=== PATIENT | female | born 1965 | race Caucasian/White ===

== ENCOUNTER 2019-05-08 22:33 | Inpatient (IN) ==
[2019-05-09] MEDS ORDERED: Naloxone 0.4 MG/ML INJ IVP PRN (03:02)
[2019-05-09 04:28] LABS: ABG Base Excess 5 mEq/L (-2 to 3); ABG HCO3 29 mEq/L (21-27); ABG Oxygen Saturation 99 % (95-98); ABG PCO2 43 mmHg (35-45); ABG PH 7.45 pH Units (7.32-7.45); ABG PO2 124 mmHg (85-104); ABG TCO2 31 mEq/L (20-26); Blood Gas Modality AF; Blood Gas VT 400 cc
[2019-05-09 04:51] LABS: Basophils # 0.1 K/mcL (0.0-0.2); Basophils % 0.6 %; Hemoglobin 11.3 g/dL (11.5-15.4); Immature Granulocytes % 0.3 % (0-4); Lymphocytes # 0.1 K/mcL (0.6-4.6); Lymphocytes % 1.4 %; Mean Corpuscular HGB Conc 30.5 g/dL (31.6-35.5); Mean Corpuscular Hemoglobin 28.8 pg (28.0-33.3); Mean Corpuscular Volume 94.1 fL (83.0-100.0); Mean Platelet Volume 10.4 fL (9.4-12.4); Monocytes # 0.2 K/mcL (0.0-1.3); Monocytes % 2.7 %; Neutrophils # 7.3 K/mcL (1.6-8.9); Platelet Count 153 K/mcL (140-400); Red Blood Count 3.93 M/mcL (3.82-4.97); Red Cell Distribution Width 17.4 % (11.5-14.5); White Blood Count 7.7 K/mcL (4.3-11.1)
[2019-05-09 05:12] LABS: BUN/Creatinine Ratio 87 (6-26); Blood Urea Nitrogen 58 mg/dL (6-20); Calcium 9.4 mg/dL (8.6-10.3); Carbon Dioxide 29 mEq/L (23-29); Chloride 104 mEq/L (98-107); Glucose 230 mg/dL (70-105); Osmolality,Calculated 321 (280-300); Potassium 3.9 mEq/L (3.5-5.1); Sodium 144 mEq/L (136-145); eGFR For African Americans > 60 (> 60); eGFR For Non-African Americans > 60 (> 60)
[2019-05-09 05:18] LABS: Anisocytosis 1+ (Not Present); Platelet Estimate Normal (Normal)
[2019-05-09] MEDS: 0.9 % Sodium Chloride 1,000 ML IVC SCH ×4 (05:47→23:54)
[2019-05-09] MEDS: levoFLOXacin 750 MG/150 ML 750 MG/150 ML BAG IVPB SCH (05:47)
[2019-05-09] MEDS: Ipratropium/Albuterol Neb 3 ML IH SCH ×4 (05:57→21:44)
[2019-05-09] MEDS ORDERED: Vancomycin 1 EACH in 0.9 % Sodium Chloride 250 ML IVPB PRN ×3 (08:53→18:00)
[2019-05-09] MEDS: Chlorhexidine Rinse 15 ML MOUTHWASH MM SCH ×2 (09:11→19:50)
[2019-05-09] MEDS: predniSONE 20 MG TABLET GTUBE SCH (09:11)
[2019-05-09] MEDS: Piperacillin/Tazobactam 3.375 GM in 0.9 % Sodium Chloride Mini Bag 100 ML IVPB SCH ×3 (09:12→23:52)
[2019-05-09 09:38] LABS: INR 1.8; Prothrombin Time 20.9 Seconds (9.4-12.1)
[2019-05-09] MEDS ORDERED: *HR* Dextrose 50 % in Water (Syg) 50 ML SYRINGE IVP PRN (10:29)
[2019-05-09] MEDS ORDERED: Dextrose Gel 15 GM/37.5 ML TUBE PO PRN ×2 (10:29)
[2019-05-09] MEDS ORDERED: D5% in Water 1,000 ML IVC PRN (10:29)
[2019-05-09] MEDS ORDERED: *HR* OxyCODONE Oral Soln 5 MG/5 ML UD.LIQ PO PRN ×2 (11:25)
[2019-05-09] MEDS: Pantoprazole 40 MG VIAL IVP SCH (11:40)
[2019-05-09] MEDS: Insulin LISPRO 300 UNITS/3 ML VIAL SQ SCH ×3 (12:05→23:53)
[2019-05-09] MEDS ORDERED: *HR* Midazolam HCl 5 MG/5 ML VIAL IVP ONE ×2 (13:39→14:56)
[2019-05-09] MEDS ORDERED: *HR* FentaNYL (PF) 100 MCG/2 ML VIAL ONE (13:39)
[2019-05-09] MEDS ORDERED: *HR* FentaNYL (PF) 100 MCG/2 ML VIAL IVP ONE (14:56)
[2019-05-09 16:00] LABS: Source of Body Fluid Right Lower Lobe BAL
[2019-05-09] MEDS: Morphine Sulfate 2 MG/ML SYRINGE IVP PRN (17:23)
[2019-05-09] MEDS: *HR* Heparin 5,000 UNIT/ML VIAL SQ SCH (18:20)
[2019-05-09 22:24] LABS: Appearance of Body Fluid Cloudy (Clear); Volume of Body Fluid 35 mL
[2019-05-10 02:40] LABS: Basophils % 0.1 %; Hematocrit 28.8 % (35.3-44.9); Immature Granulocytes % 0.8 % (0-4); Lymphocytes # 0.2 K/mcL (0.6-4.6); Mean Corpuscular HGB Conc 30.6 g/dL (31.6-35.5); Mean Corpuscular Hemoglobin 28.8 pg (28.0-33.3); Mean Corpuscular Volume 94.1 fL (83.0-100.0); Mean Platelet Volume 10.9 fL (9.4-12.4); Monocytes # 0.2 K/mcL (0.0-1.3); Monocytes % 2.8 %; Neutrophils # 7.2 K/mcL (1.6-8.9); Platelet Count 103 K/mcL (140-400); Red Blood Count 3.06 M/mcL (3.82-4.97); Red Cell Distribution Width 17.1 % (11.5-14.5); Segmented Neutrophils % 94.3 %; White Blood Count 7.6 K/mcL (4.3-11.1)
[2019-05-10 03:18] LABS: BUN/Creatinine Ratio 109 (6-26); Blood Urea Nitrogen 25 mg/dL (6-20); Calcium 8.9 mg/dL (8.6-10.3); Carbon Dioxide 27 mEq/L (23-29); Chloride 116 mEq/L (98-107); Glucose 121 mg/dL (70-105); Osmolality,Calculated 318 (280-300); Potassium 2.3 mEq/L (3.5-5.1); Sodium 151 mEq/L (136-145); eGFR For African Americans > 60 (> 60); eGFR For Non-African Americans > 60 (> 60)
[2019-05-10] MEDS: Ipratropium/Albuterol Neb 3 ML IH SCH ×4 (03:18→22:17)
[2019-05-10] MEDS ORDERED: Potassium Chloride Elixir 20 MEQ/15 ML UDC GTUBE ONE ×2 (04:04→11:22)
[2019-05-10 04:11] LABS: Hemoglobin 8.8 g/dL (11.5-15.4)
[2019-05-10 04:32] LABS: Anisocytosis 1+ (Not Present); Platelet Estimate Decreased (Normal)
[2019-05-10] MEDS: *HR* Heparin 5,000 UNIT/ML VIAL SQ SCH (05:09)
[2019-05-10] MEDS: levoFLOXacin 750 MG/150 ML 750 MG/150 ML BAG IVPB SCH (05:10)
[2019-05-10] MEDS: Insulin LISPRO 300 UNITS/3 ML VIAL SQ SCH ×4 (05:11→23:29)
[2019-05-10] MEDS: 0.9 % Sodium Chloride 1,000 ML IVC SCH (07:50)
[2019-05-10] MEDS: Piperacillin/Tazobactam 3.375 GM in 0.9 % Sodium Chloride Mini Bag 100 ML IVPB SCH ×3 (07:50→23:04)
[2019-05-10] MEDS: Pantoprazole 40 MG VIAL IVP SCH (07:51)
[2019-05-10] MEDS: Chlorhexidine Rinse 15 ML MOUTHWASH MM SCH ×2 (07:51→20:13)
[2019-05-10] MEDS: Morphine Sulfate 2 MG/ML SYRINGE IVP PRN (08:05)
[2019-05-10] MEDS: predniSONE 20 MG TABLET GTUBE SCH (09:41)
[2019-05-10] MEDS ORDERED: *HR* LORazepam 2 MG/ML VIAL IVP STA (10:32)
[2019-05-10] MEDS ORDERED: *HR* LORazepam 2 MG/ML VIAL ONE (10:35)
[2019-05-10 10:52] LABS: Potassium 2.8 mEq/L (3.5-5.1)
[2019-05-10 11:08] LABS: Magnesium 1.8 mg/dL (1.6-2.6)
[2019-05-10 11:21] LABS: Hematocrit 26.8 % (35.3-44.9); Hemoglobin 8.3 g/dL (11.5-15.4)
[2019-05-10] MEDS: Potassium Chloride Elixir 20 MEQ/15 ML UDC GTUBE SCH ×2 (12:01→14:06)
[2019-05-10] MEDS: clonazePAM 1 MG TABLET PO SCH ×2 (12:01→20:13)
[2019-05-10 15:44] LABS: Hemoglobin 7.8 g/dL (11.5-15.4)
[2019-05-10 21:16] LABS: Hematocrit 27.5 % (35.3-44.9); Hemoglobin 8.2 g/dL (11.5-15.4)
[2019-05-10] MEDS ORDERED: *HR* Metoprolol 5 MG/5 ML VIAL IVP ONE ×2 (22:46→22:52)
[2019-05-10] MEDS ORDERED: 0.9 % Sodium Chloride 1,000 ML IVC ONE (23:32)
[2019-05-11] MEDS: *HR* LORazepam 2 MG/ML VIAL IVP PRN ×2 (00:46→18:09)
[2019-05-11] MEDS: Ipratropium/Albuterol Neb 3 ML IH SCH ×4 (03:52→21:33)
[2019-05-11] MEDS: levoFLOXacin 750 MG/150 ML 750 MG/150 ML BAG IVPB SCH (06:14)
[2019-05-11] MEDS: Insulin LISPRO 300 UNITS/3 ML VIAL SQ SCH ×4 (06:15→23:50)
[2019-05-11 06:58] LABS: Hematocrit 25.9 % (35.3-44.9); Hemoglobin 7.8 g/dL (11.5-15.4); Mean Corpuscular HGB Conc 30.1 g/dL (31.6-35.5); Mean Corpuscular Hemoglobin 28.7 pg (28.0-33.3); Mean Corpuscular Volume 95.2 fL (83.0-100.0); Mean Platelet Volume 11.5 fL (9.4-12.4); Platelet Count 104 K/mcL (140-400); Red Blood Count 2.72 M/mcL (3.82-4.97); Red Cell Distribution Width 17.4 % (11.5-14.5); White Blood Count 8.7 K/mcL (4.3-11.1)
[2019-05-11 07:18] LABS: BUN/Creatinine Ratio 96 (6-26); Blood Urea Nitrogen 26 mg/dL (6-20); Calcium 8.6 mg/dL (8.6-10.3); Carbon Dioxide 26 mEq/L (23-29); Chloride 120 mEq/L (98-107); Glucose 134 mg/dL (70-105); Osmolality,Calculated 327 (280-300); Potassium 3.5 mEq/L (3.5-5.1); Sodium 155 mEq/L (136-145); eGFR For African Americans > 60 (> 60); eGFR For Non-African Americans > 60 (> 60)
[2019-05-11] MEDS: Morphine Sulfate 2 MG/ML SYRINGE IVP PRN ×2 (08:36→13:59)
[2019-05-11] MEDS: clonazePAM 1 MG TABLET PO SCH ×2 (08:36→20:15)
[2019-05-11] MEDS: Pantoprazole 40 MG VIAL IVP SCH ×2 (08:36→20:15)
[2019-05-11] MEDS: Piperacillin/Tazobactam 3.375 GM in 0.9 % Sodium Chloride Mini Bag 100 ML IVPB SCH ×3 (08:37→23:49)
[2019-05-11] MEDS: Chlorhexidine Rinse 15 ML MOUTHWASH MM SCH ×2 (08:38→20:15)
[2019-05-11] MEDS: predniSONE 20 MG TABLET GTUBE SCH (08:45)
[2019-05-11] MEDS ORDERED: Potassium Chloride Elixir 20 MEQ/15 ML UDC GTUBE ONE (09:05)
[2019-05-11 16:54] LABS: Hematocrit 25.4 % (35.3-44.9); Hemoglobin 7.7 g/dL (11.5-15.4)
[2019-05-12] MEDS: *HR* LORazepam 2 MG/ML VIAL IVP PRN (03:33)
[2019-05-12] MEDS: Ipratropium/Albuterol Neb 3 ML IH SCH ×4 (04:35→22:06)
[2019-05-12 04:47] LABS: Hematocrit 26.1 % (35.3-44.9); Hemoglobin 7.9 g/dL (11.5-15.4); Mean Corpuscular HGB Conc 30.3 g/dL (31.6-35.5); Mean Corpuscular Hemoglobin 28.5 pg (28.0-33.3); Mean Corpuscular Volume 94.2 fL (83.0-100.0); Mean Platelet Volume 11.6 fL (9.4-12.4); Platelet Count 111 K/mcL (140-400); Red Blood Count 2.77 M/mcL (3.82-4.97); Red Cell Distribution Width 17.8 % (11.5-14.5); White Blood Count 7.9 K/mcL (4.3-11.1)
[2019-05-12 05:00] LABS: BUN/Creatinine Ratio 79 (6-26); Blood Urea Nitrogen 23 mg/dL (6-20); Calcium 8.4 mg/dL (8.6-10.3); Carbon Dioxide 27 mEq/L (23-29); Chloride 119 mEq/L (98-107); Glucose 166 mg/dL (70-105); Osmolality,Calculated 323 (280-300); Potassium 3.5 mEq/L (3.5-5.1); Sodium 153 mEq/L (136-145); eGFR For African Americans > 60 (> 60); eGFR For Non-African Americans > 60 (> 60)
[2019-05-12] MEDS: Insulin LISPRO 300 UNITS/3 ML VIAL SQ SCH ×4 (05:17→23:36)
[2019-05-12] MEDS: Piperacillin/Tazobactam 3.375 GM in 0.9 % Sodium Chloride Mini Bag 100 ML IVPB SCH ×3 (07:46→23:35)
[2019-05-12] MEDS: Pantoprazole 40 MG VIAL IVP SCH ×2 (07:47→20:02)
[2019-05-12] MEDS: Chlorhexidine Rinse 15 ML MOUTHWASH MM SCH ×2 (07:47→20:01)
[2019-05-12] MEDS: predniSONE 20 MG TABLET GTUBE SCH (07:47)
[2019-05-12] MEDS: clonazePAM 1 MG TABLET PO SCH ×2 (07:47→20:02)
[2019-05-12] MEDS: Morphine Sulfate 2 MG/ML SYRINGE IVP PRN ×2 (14:41→23:46)
[2019-05-13] MEDS: Ipratropium/Albuterol Neb 3 ML IH SCH ×4 (03:28→21:17)
[2019-05-13] MEDS: Insulin LISPRO 300 UNITS/3 ML VIAL SQ SCH ×3 (05:35→17:59)
[2019-05-13] MEDS: Piperacillin/Tazobactam 3.375 GM in 0.9 % Sodium Chloride Mini Bag 100 ML IVPB SCH ×2 (08:18→16:22)
[2019-05-13] MEDS: Chlorhexidine Rinse 15 ML MOUTHWASH MM SCH ×2 (08:18→19:37)
[2019-05-13] MEDS: predniSONE 20 MG TABLET GTUBE SCH (08:18)
[2019-05-13] MEDS: clonazePAM 1 MG TABLET PO SCH ×2 (08:18→19:38)
[2019-05-13] MEDS: Pantoprazole 40 MG VIAL IVP SCH ×2 (08:18→19:38)
[2019-05-13] MEDS: Morphine Sulfate 2 MG/ML SYRINGE IVP PRN (14:46)
[2019-05-13] MEDS: *HR* LORazepam 2 MG/ML VIAL IVP PRN (18:01)
[2019-05-14] MEDS: Piperacillin/Tazobactam 3.375 GM in 0.9 % Sodium Chloride Mini Bag 100 ML IVPB SCH ×3 (00:24→16:36)
[2019-05-14] MEDS: Insulin LISPRO 300 UNITS/3 ML VIAL SQ SCH ×4 (00:24→18:40)
[2019-05-14] MEDS: Ipratropium/Albuterol Neb 3 ML IH SCH ×4 (03:56→23:00)
[2019-05-14] MEDS ORDERED: Aminoglycoside Consult 1 EACH MC ONE (08:24)
[2019-05-14 08:34] LABS: BUN/Creatinine Ratio 74 (6-26); Blood Urea Nitrogen 20 mg/dL (6-20); Calcium 8.3 mg/dL (8.6-10.3); Carbon Dioxide 31 mEq/L (23-29); Chloride 113 mEq/L (98-107); Glucose 146 mg/dL (70-105); Osmolality,Calculated 319 (280-300); Potassium 2.9 mEq/L (3.5-5.1); Sodium 152 mEq/L (136-145); eGFR For African Americans > 60 (> 60); eGFR For Non-African Americans > 60 (> 60)
[2019-05-14] MEDS ORDERED: Calcium Gluconate 1gm/50mL 1 GM/50 ML BAG IVPB PRN (09:04)
[2019-05-14] MEDS ORDERED: Potassium Phosphate 44 MEQ in 0.9 % Sodium Chloride 250 ML IVPB PRN (09:04)
[2019-05-14] MEDS: Pantoprazole 40 MG VIAL IVP SCH ×2 (09:52→20:28)
[2019-05-14] MEDS: clonazePAM 1 MG TABLET PO SCH ×2 (09:52→20:28)
[2019-05-14] MEDS: predniSONE 20 MG TABLET GTUBE SCH (09:52)
[2019-05-14] MEDS: Chlorhexidine Rinse 15 ML MOUTHWASH MM SCH ×2 (09:52→20:28)
[2019-05-14] MEDS: FentaNYL (PF) 1,000 MCG in 0.9 % Sodium Chloride 80 ML IVC SCH (11:31)
[2019-05-14] MEDS ORDERED: FentaNYL (PF) 1,000 MCG in 0.9 % Sodium Chloride 80 ML IV ONE (13:56)
[2019-05-15] MEDS: Piperacillin/Tazobactam 3.375 GM in 0.9 % Sodium Chloride Mini Bag 100 ML IVPB SCH ×2 (00:27→08:34)
[2019-05-15] MEDS: Insulin LISPRO 300 UNITS/3 ML VIAL SQ SCH ×3 (00:28→16:47)
[2019-05-15] MEDS: Ipratropium/Albuterol Neb 3 ML IH SCH ×3 (03:35→15:40)
[2019-05-15] MEDS: FentaNYL (PF) 1,000 MCG in 0.9 % Sodium Chloride 80 ML IVC SCH ×2 (05:40→18:30)
[2019-05-15] MEDS: Chlorhexidine Rinse 15 ML MOUTHWASH MM SCH ×2 (08:35→20:24)
[2019-05-15] MEDS: clonazePAM 1 MG TABLET PO SCH (08:35)
[2019-05-15] MEDS: Pantoprazole 40 MG VIAL IVP SCH (08:35)
[2019-05-15] MEDS ORDERED: *HR* LORazepam 2 MG/ML VIAL IVP PRN ×3 (12:22→16:49)
[2019-05-15] MEDS ORDERED: *HR* FentaNYL (PF) 100 MCG/2 ML VIAL IVP PRN (12:22)
[2019-05-15] MEDS: *HR* LORazepam 2 MG/ML VIAL IVP PRN (12:28)
[2019-05-15] MEDS ORDERED: FentaNYL (PF) 1,000 MCG in 0.9 % Sodium Chloride 80 ML IV ONE (13:56)
[2019-05-15] MEDS: predniSONE 20 MG TABLET GTUBE SCH (16:48)
[2019-05-15] MEDS: *HR* FentaNYL (PF) 100 MCG/2 ML VIAL IVP PRN ×2 (17:19→18:33)
[2019-05-15] MEDS: Morphine Sulfate 2 MG/ML SYRINGE IVP PRN (20:27)
[2019-05-16] MEDS: FentaNYL (PF) 1,000 MCG in 0.9 % Sodium Chloride 80 ML IVC SCH ×2 (02:14→10:44)
[2019-05-16] MEDS: Morphine Sulfate 2 MG/ML SYRINGE IVP PRN (07:42)
[2019-05-16 07:46] VITALS: BP 136/88
[2019-05-16] MEDS: Chlorhexidine Rinse 15 ML MOUTHWASH MM SCH (07:48)
[2019-05-16] MEDS ORDERED: *HR* FentaNYL PATCH 50 MCG PATCH TD SCH (10:15)
[2019-05-16] MEDS ORDERED: *HR* FentaNYL PATCH 75 MCG PATCH TD SCH (10:15)
== END 2019-05-16 13:57 | disposition hospice, inpatient (51) | DRG 207 ==
LOC: SUATTDRO 05-09 02:54 → ICNU 05-09 02:54 → 2ANU 05-15 16:45
PROVIDERS: ADMIT Family Medicine; ATTEND Internal Medicine

== ENCOUNTER 2019-05-16 10:43 | Inpatient (IN) ==
[2019-05-16] MEDS: FentaNYL (PF) 1,000 MCG in 0.9 % Sodium Chloride 80 ML IVC SCH ×2 (10:47→19:02)
[2019-05-16] MEDS ORDERED: Bisacodyl 10 MG RECTAL SUPPOSITORY RC PRN (10:54)
[2019-05-16] MEDS ORDERED: Atropine Sulfate 1% 40 DROP/2 ML BOTTLE SL PRN (10:54)
[2019-05-16] MEDS ORDERED: Ipratropium/Albuterol Neb 3 ML IH PRN (10:54)
[2019-05-16] MEDS ORDERED: Haloperidol Oral Conc 10 MG/5 ML UDC PO PRN (10:54)
[2019-05-16] MEDS ORDERED: *HR* FentaNYL PATCH 12 MCG PATCH TD SCH (11:00)
--- NOTE | 2019-05-16 13:16 | Pallative History & Physical ---
Date of Encounter: 05/16/19 Time of Encounter: 09:00 Assessment and Plan (1) Dyspnea Status: Acute Patient with end-stage ALS. Has tracheostomy to trach mask O2. - Fan at bedside - HOB up - Suction PRN - Atropine gtts prn Qualifiers: Dyspnea type: unspecified Qualified Code(s): R06.00 - Dyspnea, unspecified (2) Generalized pain Status: Chronic Patient with end-stage ALS. Patient nonverbal. Currently on Fentanyl gtt. Will transition gtt to patch and add SL Oxycodone. Plan is to DC gtt after 2200 tonight as patch will need time to start working. (3) Goals of care, counseling/discussion Status: Acute Discussed transition of patient to [facility] inpatient hospice care today. agree to plan. Terminal diagnosis of ALS. (4) Palliative care encounter Status: Acute (5) ALS (amyotrophic lateral sclerosis) Status: Chronic Internal Medicine - H&P: HPI Chief complaint: ALS Admitted From: Intrahospital Transfer Plans for Post Hospital Care: at Medical Facility History of present illness: Ms. Loera is a 53 year old female with end-stage ALS. Patient transitioned to inpatient hospice care for comfort care. Ricardo at bedside. Explained POC and goals for comfort. Medications adjusted. Past Med Surg Social Fam HX - Past Medical History Medical history: asthma, other Additional medical history: ALS, PNEUMONIA, CURRENTLY A HOSPICE PT AND A FULL CODE OF 05/08/2019 Psychiatric history: anxiety, depression - Past Surgical History Surgical History: non-contributory Additional surgical history: TRACH, peg tube - Social History Smoking Status: Former smoker Smokeless Tobacco Status: No Alcohol use: rarely Drug use: none Internal Medicine - H&P: Meds FentaNYL PATCH [Duragesic] 50 mcg TD Q72H [id number] 05/16/19 [Rx] LORazepam [Ativan] 1 mg IVP Q1H PRN vial 05/16/19 [Rx] Allergy/AdvReac Type Severity Reaction Status Date / Time No Known Allergies Allergy Verified 05/08/19 20:17 ROS unobtainable: due to mental status (Patient with ALS, tracheostomy tube in place. Nonverbal. ) - Constitutional Constitutional ROS PAL: fatigue - Respiratory Respiratory: dyspnea - Musculoskeletal Musculoskeletal ROS IM: muscle weakness - Psychiatric Psychiatric general PM: anxiety Palliative Care-Exam - Constitutional General appearance: Present: cooperative, no acute distress - Head Head Exam: Present: atraumatic - Eye Eye exam: Present: PERRL - ENT ENT exam: Present: mucous membranes dry - Expanded ENT Exam Throat exam: Present: normal inspection - Neck Additional comments: Tracheostomy to anterior neck - Respiratory Respiratory exam: Present: decreased breath sounds - Expanded Respiratory Exam Location: decreased breath sounds: Left, Right, Lower - Cardiovascular Cardiovascular exam: Present: +S1, +S2 - Expanded Cardiovascular Exam Peripheral pulses: 1+: Femoral (L) PM, Femoral (R) PM, Posterior Tibialis (L), Posterior Tibialis (R), 2+: Carotid (L) PM, Carotid (R) PM, Radial (L), Radial (R), Dorsalis Pedis (L) PM, Dorsalis Pedis (R) PM - GI/Abdominal Exam GI/Abdominal exam: Present: soft (PEG in place) - Rectal Rectal exam: Present: deferred - Catheter Type: Urethral (Freed) Additional comments: clear yellow urine - Extremities Exam Extremities exam: Present: tenderness Additional comments: Patient with upper and lower extremity contracture's r/t ALS - Neurological Exam Neurological exam: Present: alert Additional comments: Nonverbal - Expanded Neurological Exam Coma Scale Eye Opening: Spontaneous Coma Scale Motor Response: Withdraws to Pain Coma Scale Verbal Response: Oriented Coma Scale Total: 13 - Psychiatric Psychiatric exam: Present: flat affect - Skin Skin exam: Present: intact, warm Palliative Quality Palliative Quality: Screen for Code Status: No, Screen for Goals of Care: No, Screen for Pain: Yes, If Pain Regimen Started, Initiate Bowel Regimen: Yes, Screen for Nausea/Vomitting: Yes Code Status: 05/16/19 10:54 Resuscitation Status: Active [RES] Routine Comment: Resuscitation Status: DNR-Comfort Care
[2019-05-16] MEDS ORDERED: FentaNYL PATCH 100 MCG, FentaNYL PATCH 25 MCG TD SCH (14:30)
[2019-05-17] MEDS: *HR* LORazepam Oral Conc 2 MG/ML PO PRN ×2 (06:00→07:16)
--- NOTE | 2019-05-17 10:04 | Palliative Progress Note ---
Date of Encounter: 05/17/19 Time of Encounter: 09:30 - Assessment and plan (1) Dyspnea Current Visit: No Status: Acute Assessment and plan: Patient with end-stage ALS. Has tracheostomy to trach mask O2. - Fan at bedside - HOB up - Suction PRN - Atropine gtts prn - Current FiO2 at 40%. Will titrate off if possible and to maintain sats >90% Qualifiers: Dyspnea type: unspecified Qualified Code(s): R06.00 - Dyspnea, unspecified (2) Generalized pain Current Visit: No Status: Chronic Assessment and plan: Patient with end-stage ALS. Patient nonverbal. Transitioned to patch yesterday and add SL Oxycodone. Tolerating well. (3) Goals of care, counseling/discussion Current Visit: Yes Status: Acute Assessment and plan: Terminal diagnosis of ALS. Patient inpatient hospice. Will work to DC O2 or get to lower flow to maintain comfortable sats. Family to visit today for holiday. (4) Palliative care encounter Current Visit: Yes Status: Acute (5) ALS (amyotrophic lateral sclerosis) Current Visit: Yes Status: Chronic - Time Spent With Patient Total time spent is greater than 50% in coordination of care (as documented) at patient's floor/unit and/or counseling patient: less than 15 minutes - Subjective Interval history: Patient resting comfortable. Mother at bedside. Provided support. Plan for grandchildren to visit today. Transitioned from IV gtt fentanyl to transdermal patch yesterday and is tolerating well. Family states rested well last night. - Constitutional General appearance: Present: no acute distress - Head Head exam: Present: atraumatic - Eye Eye exam: Present: PERRL Additional comments: Tracks movement - ENT ENT exam: Present: mucous membranes dry Additional comments: Mouth care provided - Neck Neck exam: Present: full ROM - Respiratory Respiratory exam: Present: decreased breath sounds Additional comments: FiO2 at 40% per trach mask - Cardiovascular Cardiovascular exam: Present: RRR, +S1, +S2 - GI/Abdominal GI/Abdominal exam: Present: normal bowel sounds, soft Additional comments: PEG in place - Extremities Exam Additional comments: BIlateral foot drop, upper arm contractures - Neurological Exam Neurological exam: Present: alert (Nonverbal) - Psychiatric Psychiatric exam: Present: flat affect - Skin Skin exam: Present: pallor, warm Palliative Quality Palliative Quality: Screen for Code Status: No, Screen for Goals of Care: No, Screen for Pain: Yes, If Pain Regimen Started, Initiate Bowel Regimen: Yes, Screen for Nausea/Vomitting: Yes Code Status: 05/16/19 10:54 Resuscitation Status: Active [RES] Routine Comment: Resuscitation Status: DNR-Comfort Care
[2019-05-17] MEDS ORDERED: Saliva Stimulant 100ml BOTTLE PO PRN (10:49)
[2019-05-17] MEDS ORDERED: Acetaminophen 650 MG RECTAL SUPP RC PRN (10:51)
[2019-05-17 19:43] VITALS: BP 178/101
--- NOTE | 2019-05-18 07:40 | Death Note ---
Discharge Sum: Summary - Date and Time Date of admission: 05/16/19 13:58 - Summary Details: Ms. Loera is a 53 year old female with past medical history of ALS, trach, anxiety, and depression. Patient was recently admitted to this facility and discharged on 05/04/19. During that admission as when she received the trach and PEG. On 05/08 She presented to [place] ED from [facility] with reported shortness of breath, and increased sputum production. She was reported to have increase in thick yellow sputum. Chest x-ray showed bibasilar consolidation increased on the right and new on the left, concerning for bibasilar pneumonia or aspiration. Patient was subsequently transferred to our facility for further critical care regarding trach and ventilator management. Pt was admitted to ICU, but contunied to deteriorate. On 05/16/19, Patient transitioned to inpatient hospice care for comfort care. She peacefully with family at the bedside. - Additional Data Confirmation of as documented by pronouncing clinician: no pulse, no respirations, no heart sounds Family: at bedside Attending/PCP notified?: Yes Attending physician: Tal Lugo MD Was code activated?: No Autopsy requested?: No finished yarn examiner notified?: No Organ bank notified?: Yes Advance directives: Yes Hospice patient?: Yes Discharge Sum: Diag - PCOD Probable Cause of : Cardiac arrest Discharge Sum: Prov - Provider Admitting clinician: Randi Jackson Attending physician on admission: Randi Jackson Consults: 05/16/19 10:54 Consult to Palliative Care [CONS] Routine Comment: Consulting Provider: Palliative Care Jackie Reason for Consult: symptom management Time Notified: 10:45 Call Completed: Yes
== END 2019-05-18 01:45 | disposition expired | DRG 57 ==
LOC: 2ANU 13:58
PROVIDERS: ADMIT Internal Medicine; ATTEND Internal Medicine